=== PATIENT | female | born 1975 | race Two or more races ===

== ENCOUNTER 2016-09-05 10:38 | Emergency (ER) | payer BC ==
[2016-09-05 10:44] VITALS: BP 128/86; PULSE 81; TEMP 98.2; BMI 21.0
[2016-09-05] MEDS ORDERED: IBUPROFEN 400 MG TABLET (FP) PO ONE ×2 (11:22→11:25)
--- NOTE | 2016-09-05 11:29 | PDOC ---
History of Present Illness - General Chief Complaint: Ear Problem Stated Complaint: RT EAR PAIN Time Seen by Provider: 09/05/16 11:01 History Source: Patient Exam Limitations: No Limitations - History of Present Illness Initial Comments: 09/05/16 11:24 CC right ear pain which increases when chewing x 2 ddays; getting better Past History - Past History Allergies/Adverse Reactions: Allergies No Known Allergies Allergy (Verified 09/05/16 10:44) Home Medications: Ambulatory Orders No Home Medications 0 dose .ROUTE UTDICT 03/27/12 Immunization Status Up to Date: No - Social History Smoking History: No Smoking Status: Never smoked Number of Cigarettes Smoked Per Day: 0 Review of Systems - Review of Systems Constitutional: No: Symptoms Reported HEENTM: Yes: Ear Pain. No: Symptoms Reported, Ear Discharge, Nose Congestion, Difficulty Swallowing Respiratory: No: Symptoms reported, Cough Cardiac (ROS): No: Symptoms Reported ABD/GI: No: Symptoms Reported : No: Symptoms Reported Musculoskeletal: No: Symptoms Reported Integumentary: No: Other *Physical Exam - Vital Signs Last Vital Signs Temp Pulse Resp BP Pulse Ox 98.2 F 81 20 128/86 100 09/05/16 10:41 09/05/16 10:41 09/05/16 10:41 09/05/16 10:41 09/05/16 10:41 - Physical Exam General Appearance: Yes: Appropriately Dressed. No: Apparent Distress HEENT: positive: TM Bulging (small effusion right TM [no redness; mild tender to area under Ear increases with movement). negative: Pharynx Normal, Other ( teeth normal) Neck: positive: Supple. negative: Tender, Rigid Respiratory/Chest: positive: Lungs Clear. negative: Chest Tender, Normal Breath Sounds Cardiovascular: positive: Regular Rhythm, Regular Rate. negative: Murmur Medical Decision Making - Medical Decision Making 09/05/16 11:28 will treat right otitis with wait and see approach and motrin for pain; *DC/Admit/Observation/Transfer Diagnosis at time of Disposition: Otitis media Qualifiers: Otitis media type: suppurative Laterality: right Chronicity: acute - Discharge Dispostion Disposition: HOME Condition at time of disposition: Stable Admit: No - Patient Instructions Additional Instructions: please start motrin for pain , if symptoms worsen start amox
== END 2016-09-05 11:38 | disposition home or self-care (01) ==
LOC: JERFT 10:38
DX: H66.001 Acute suppurative otitis media without spontaneous rupture of ear drum, right ear (principal)
CPT/HCPCS: 99281-25